=== PATIENT | female | born 1990 | race Caucasian/White ===

== ENCOUNTER 2017-10-18 19:26 | Emergency (ER) | payer BC ==
[2017-10-18 22:43] LABS: URINE BLOOD (Dip) POC Negative (NEGATIVE); URINE GLUCOSE (Dip) POC Negative (NEGATIVE); URINE KETONES (Dip) POC Negative (NEGATIVE); URINE LEUKOCYTE EST (Dip) POC 1+ (NEGATIVE); URINE NITRITE (Dip) POC Negative (NEGATIVE); URINE TOTAL PROTEIN POC Negative (NEGATIVE)
[2017-10-18 22:43] LABS: URINE PH (Dip) POC 7.5 (5.0-8.5)
== END 2017-10-19 01:23 | disposition home or self-care (01) ==
LOC: FTE 10-19 01:23
DX: J01.00 Acute maxillary sinusitis, unspecified (principal); N30.00 Acute cystitis without hematuria; J45.909 Unspecified asthma, uncomplicated
CPT/HCPCS: 81003; 81025; 99284

== ENCOUNTER 2018-05-09 16:28 | Emergency (ER) | payer BC ==
[2018-05-09 17:33] LABS: URINE BLOOD (Dip) POC Trace-intact (NEGATIVE); URINE GLUCOSE (Dip) POC Negative (NEGATIVE); URINE KETONES (Dip) POC Negative (NEGATIVE); URINE LEUKOCYTE EST (Dip) POC Negative (NEGATIVE); URINE NITRITE (Dip) POC Negative (NEGATIVE); URINE TOTAL PROTEIN POC Negative (NEGATIVE)
[2018-05-09] MEDS: ACETAMINOPHEN 500 MG TAB PO (17:44)
[2018-05-09] MEDS: METOCLOPRAMIDE 10 MG TAB PO (17:44)
[2018-05-09] MEDS: KETOROLAC 30 MG INJ IM (17:44)
== END 2018-05-09 18:50 | disposition home or self-care (01) ==
LOC: FTE 16:28
DX: R51 Headache (principal); J45.909 Unspecified asthma, uncomplicated
CPT/HCPCS: 81003; 81025; 96372; 99284-25

== ENCOUNTER 2018-06-26 16:01 | Emergency (ER) | payer BC | END 2018-06-26 17:33 | disposition home or self-care (01) | LOC: FTE 17:33 | DX: H92.01 Otalgia, right ear (principal); J06.9 Acute upper respiratory infection, unspecified; J45.909 Unspecified asthma, uncomplicated | CPT/HCPCS: 99283 ==

== ENCOUNTER 2018-09-21 09:47 | Emergency (ER) | payer BC | END 2018-09-21 11:15 | disposition home or self-care (01) | LOC: FTE 09:47 | DX: J06.9 Acute upper respiratory infection, unspecified (principal); H66.91 Otitis media, unspecified, right ear; J45.909 Unspecified asthma, uncomplicated | CPT/HCPCS: 99283 ==

== ENCOUNTER 2018-09-22 13:45 | Emergency (ER) | payer SELFPAY, BC | END 2018-09-22 16:40 | disposition left against medical advice (07) | LOC: FTE 13:45 | DX: Z53.21 Procedure and treatment not carried out due to patient leaving prior to being seen by health care provider (principal) ==